=== PATIENT | female | born 1985 | race Caucasian/White ===

== ENCOUNTER 2023-01-18 21:23 | Emergency (ER) | payer BC, SELFPAY ==
[2023-01-18] VITALS (9 sets, daily range): BP systolic 146–164; BP diastolic 77–100; PULSE 77–82; RESP 16–18; TEMP 37.1; O2SAT 97–98; BMI 43.4
--- NOTE | 2023-01-18 22:32 | ECG_ITS ---
[facility] Test Date: 2023-01-18 Pat Name: Mariam Rodriguez Department: Room: - Gender: Female Surveillance Systems [employer]st: : 1985 Requested By: MARE EDEN Order Number: [id number] Reading MD: EDDIE DE LA VEGA Measurements Intervals [place] Rate: 78 P: 73 VA: 190 QRS: 76 QRSD: 92 T: 52 QT: 418 QTc: 452 Interpretive Statements 1100 Sinus rhythm 8304 Long QTc interval 9150 abnormal ECG No previous ECG available for comparison Electronically Signed On 01-19-2023 6:41:31 EDT by EDDIE DE LA VEGA
--- NOTE | 2023-01-18 22:32 | XR_ITS ---
[address] [address] Patient Name: JEOVANY GORDILLO MRN: [id number] date: 1985 Sex: F Assigned Patient Location: ER Current Patient Location: ER Accession/Order Number: [id number] Exam Date: 01/18/2023 23:08 Report Date: 01/18/2023 23:35 At the request of: COREY VARMA Procedure: XR chest 1V EXAMINATION: XR chest 1V HISTORY: Hypertension COMPARISON: Chest x-rays 07/14/2015 TECHNIQUE: Portable chest FINDINGS: The lung parenchyma is free of consolidation or infiltrate. No pneumothorax or pleural effusion. The cardiac, mediastinal and hilar contours are normal. The visualized osseous structures exhibit no gross abnormality. IMPRESSION: No acute cardiopulmonary abnormality. Electronically authenticated by: MILTON FATIMA Date: 01/18/2023 23:35
--- NOTE | 2023-01-18 22:33 | ED_ITS ---
HPI - Chest Pain General Chief Complaint: Chest Pain Stated Complaint: high blood pressure Time Seen by Provider: 01/18/23 22:32 Source: patient Mode of arrival: walk-in Limitations: no limitations History of Present Illness HPI narrative: patient states at home she developed pain of her ears, headache and pain extending down her back. Took her BP and it was over 200 on 3 separate occasions. Decided to come to the ER. No chest pain or dyspnea or nausea. States feeling better now that she is here Risk Factors Coronary artery disease risk factors: hypertension Related Data Home Medications Medication Instructions Recorded Confirmed carvedilol 25 mg tablet mg 01/18/23 cyclobenzaprine 10 mg tablet mg 01/18/23 empagliflozin 25 mg tablet mg 01/18/23 (Jardiance) furosemide 20 mg tablet mg 01/18/23 losartan 100 mg tablet mg 01/18/23 meloxicam 15 mg tablet mg 01/18/23 Allergies Allergy/AdvReac Type Severity Reaction Status Date / Time calcium carbonate [From Tums] Allergy Unknown Verified 01/18/23 22:02 Review of Systems ROS Status of ROS 10 or more systems reviewed and unremarkable except as noted in history and below Exam Constitutional Vital Signs - 24 hr 01/18/23 21:54 01/18/23 23:47 01/18/23 21:58 Temperature 98.7 F Pulse Rate Pulse Rate [Monitor] 82 Respiratory Rate 18 Blood Pressure 150/100 H Blood Pressure [Left Arm] 164/93 H Pulse Oximetry 97 97 Oxygen Delivery Method Room Air 01/18/23 21:59 01/18/23 21:59 01/18/23 21:59 Temperature Pulse Rate Pulse Rate [Monitor] Respiratory Rate Blood Pressure 164/93 H 164/93 H Blood Pressure [Left Arm] Pulse Oximetry 98 Oxygen Delivery Method 01/18/23 22:07 01/18/23 22:16 01/18/23 22:38 Temperature Pulse Rate 77 Pulse Rate [Monitor] Respiratory Rate Blood Pressure 161/77 H 146/99 H Blood Pressure [Left Arm] Pulse Oximetry Oxygen Delivery Method 01/18/23 22:39 01/18/23 23:41 01/19/23 00:42 Temperature Pulse Rate 77 Pulse Rate [Monitor] Respiratory Rate 16 Blood Pressure 160/81 H 150/100 H Blood Pressure [Left Arm] Pulse Oximetry Oxygen Delivery Method HENAR Common normals: normocephalic and head/scalp atraumatic Eye Common normals: EOMs intact bilaterally and conjunctivae normal Neck & C-Spine Common normals: full ROM Chest Common normals: inspection of chest normal Respiratory Common normals: normal respiratory effort, no use of accessory muscles and clear to auscultation bilaterally Cardio Common normals: no JVD, regular rhythm and S1 normal heart sound GI Common normals: Normal to inspection, nondistended, normoactive bowel sounds present and soft to palpation Extremity Common normals: normal to inspection, full ROM and no joint enlargement Neuro Common normals: oriented x3, CN's II-XII intact bilaterally and gait normal Psych Common normals: mental status grossly normal Course Vital Signs Vital signs: Vital Signs Temperature 98.7 F 01/18/23 21:54 Pulse Rate 82 01/18/23 21:54 Respiratory Rate 18 01/18/23 21:54 Blood Pressure 164/93 H 01/18/23 21:54 Pulse Oximetry 97 01/18/23 21:54 Oxygen Delivery Method Room Air 01/18/23 21:54 Temperature 98.7 F 01/18/23 21:54 Pulse Rate 77 01/18/23 22:39 Respiratory Rate 16 01/18/23 22:39 Blood Pressure 150/100 H 01/19/23 00:42 Pulse Oximetry 98 01/18/23 21:59 Oxygen Delivery Method Room Air 01/18/23 21:54 MDM - Chest Pain MDM Narrative Medical decision making narrative: patient presented with complaint of headache, ear pain and hypertension. States BP at home was over 200s on 3 occasions. Here her BP was acceptable. Labs inc luding troponin neg. EKG with sinus rhythm. QT sl. elevated. Patient discharged home to follow up with her family doctor. She will continue to monitor her BP at home. she remained asymptomatic while in the department Lab Data Labs: Lab Results 01/18/23 Range/Units 22:03 WBC 8.7 (4.0-11.0) 10^3/uL RBC 4.61 (4.20-5.40) 10^6/uL Hgb 13.5 (12.0-16.0) g/dL Hct 41.3 (36.0-48.0) % MCV 89.6 (81.0-99.0) fL MCH 29.3 (26.7-34.0) pg MCHC 32.7 (29.9-35.2) g/dL RDW 12.3 (11.0-15.0) % Plt Count 305 (150-450) 10^3/uL MPV 10.3 (9.5-13.5) fL Neut % (Auto) 62.3 (43.0-75.0) % Lymph % (Auto) 27.8 (20.5-60.0) % [place] % (Auto) 7.0 (1.7-12.0) % Eos % (Auto) 2.1 (0.9-7.0) % Baso % (Auto) 0.6 (0.2-2.0) % Neut # (Auto) 5.4 (1.4-6.5) 10^3/uL Lymph # (Auto) 2.4 (1.2-3.8) 10^3/uL [place] # (Auto) 0.6 (0.3-0.8) 10^3/uL Eos # (Auto) 0.2 (0.0-0.7) 10^3/uL Baso # (Auto) 0.1 (0.0-0.1) 10^3/uL Sodium 136 (136-145) mmol/L Potassium 3.3 L (3.5-5.1) mmol/L Chloride 101 (98-107) mmol/L Carbon Dioxide 27.9 (21.0-32.0) mmol/L Anion Gap 10.4 BUN 11.0 (7.0-18.0) mg/dL Creatinine 0.91 (0.55-1.02) mg/dL Est GFR ( Amer) >60 (>=60) Est GFR (Non-Af Amer) >60 (>=60) BUN/Creatinine Ratio 12.1 Glucose 118 H (74-106) mg/dL Calcium 8.5 (8.5-10.1) mg/dL Troponin I High Sens 5.0 (4.0-51.3) pg/mL Discharge Plan Discharge Chief Complaint: Chest Pain Clinical Impression: Hypertension Patient Disposition: Home, Self-Care Prescriptions / Home Meds: No Action cyclobenzaprine 10 mg tablet carvedilol 25 mg tablet meloxicam 15 mg tablet furosemide 20 mg tablet losartan 100 mg tablet Jardiance 25 mg tablet Instructions: Hypertension (ED) Stand Alone Forms: Portal Instructions Referrals: MARE EDEN [Primary Care Provider] - 1 week Follow Up Appointments: follow up with the family doctor for recheck of blood pressure next week
[2023-01-18 22:39] LABS: Basophils Absolute Auto 0.1 10^3/uL (0.0-0.1); Basophils Percent Auto 0.6 % (0.2-2.0); Eosinophils Absolute Auto 0.2 10^3/uL (0.0-0.7); Eosinophils Percent Auto 2.1 % (0.9-7.0); Hematocrit 41.3 % (36.0-48.0); Hemoglobin 13.5 g/dL (12.0-16.0); Immature Granulocytes Abs Auto 0.02 10^3/uL (0.00-0.03); Immature Granulocytes Pct Auto 0.2 % (0.0-0.5); Lymphocytes Absolute Auto 2.4 10^3/uL (1.2-3.8); Lymphocytes Percent Auto 27.8 % (20.5-60.0); Mean Corpuscular HGB Conc 32.7 g/dL (29.9-35.2); Mean Corpuscular Hemoglobin 29.3 pg (26.7-34.0); Mean Corpuscular Volume 89.6 fL (81.0-99.0); Mean Platelet Volume 10.3 fL (9.5-13.5); Monocytes Absolute Auto 0.6 10^3/uL (0.3-0.8); Neutrophils Absolute Auto 5.4 10^3/uL (1.4-6.5); Neutrophils Percent Auto 62.3 % (43.0-75.0); Platelet Count 305 10^3/uL (150-450); Red Blood Count 4.61 10^6/uL (4.20-5.40); Red Cell Distribution Width 12.3 % (11.0-15.0); White Blood Count 8.7 10^3/uL (4.0-11.0)
[2023-01-18 23:01] LABS: Anion Gap 10.4; BUN Creatinine Ratio 12.1; Calcium 8.5 mg/dL (8.5-10.1); Carbon Dioxide 27.9 mmol/L (21.0-32.0); Chloride 101 mmol/L (98-107); Estimated GFR (African America >60 (>=60); Estimated GFR (Non-African Ame >60 (>=60); Glucose 118 mg/dL (74-106); Potassium 3.3 mmol/L (3.5-5.1); Sodium 136 mmol/L (136-145)
[2023-01-19 00:42] VITALS: BP 150/100
== END 2023-01-19 01:44 | disposition home or self-care (01) ==
PROVIDERS: Emergency Provider Internal Medicine; PCP Family Medicine
DX: I10 Essential (primary) hypertension (principal); Z79.899 Other long term (current) drug therapy
CPT/HCPCS: 36415; 71045; 80048; 84484; 85025; 93005; 99285

== ENCOUNTER 2023-04-10 16:38 | Outpatient (OUT) | payer BC, SELFPAY ==
[2023-04-10 16:58] LABS: Basophils Absolute Auto 0.1 10^3/uL (0.0-0.1); Basophils Percent Auto 0.4 % (0.2-2.0); Eosinophils Absolute Auto 0.2 10^3/uL (0.0-0.7); Eosinophils Percent Auto 1.3 % (0.9-7.0); Hematocrit 41.4 % (36.0-48.0); Hemoglobin 13.5 g/dL (12.0-16.0); Immature Granulocytes Abs Auto 0.04 10^3/uL (0.00-0.03); Immature Granulocytes Pct Auto 0.4 % (0.0-0.5); Lymphocytes Absolute Auto 2.5 10^3/uL (1.2-3.8); Lymphocytes Percent Auto 21.8 % (20.5-60.0); Mean Corpuscular HGB Conc 32.6 g/dL (29.9-35.2); Mean Corpuscular Hemoglobin 29.5 pg (26.7-34.0); Mean Corpuscular Volume 90.4 fL (81.0-99.0); Mean Platelet Volume 10.3 fL (9.5-13.5); Monocytes Absolute Auto 0.6 10^3/uL (0.3-0.8); Monocytes Percent Auto 4.8 % (1.7-12.0); Neutrophils Absolute Auto 8.1 10^3/uL (1.4-6.5); Neutrophils Percent Auto 71.3 % (43.0-75.0); Platelet Count 272 10^3/uL (150-450); Red Blood Count 4.58 10^6/uL (4.20-5.40); Red Cell Distribution Width 12.7 % (11.0-15.0); White Blood Count 11.4 10^3/uL (4.0-11.0)
[2023-04-10 17:25] LABS: Estimated Average Glucose 117 mg/dL; Glycohemoglobin A1C 5.7 % (4.5-6.2)
[2023-04-10 17:38] LABS: Alanine Aminotransferase 36 U/L (14-59); Albumin Globulin Ratio 1.1; Alkaline Phosphatase 67 U/L (46-116); Anion Gap 11.2; Aspartate Amino Transferase 18 U/L (15-37); BUN Creatinine Ratio 9.7; Bilirubin Total 0.7 mg/dL (0.2-1.0); Calcium 8.6 mg/dL (8.5-10.1); Carbon Dioxide 27.3 mmol/L (21.0-32.0); Chloride 100 mmol/L (98-107); Chol HDL Ratio 5.4; Cholesterol 182 mg/dL (<=200); Estimated GFR (African America >60 (>=60); Estimated GFR (Non-African Ame >60 (>=60); Globulin 3.6 g/dL; Glucose 92 mg/dL (74-106); HDL Cholesterol 34 mg/dL (40-60); Potassium 3.5 mmol/L (3.5-5.1); Sodium 135 mmol/L (136-145); Thyroid Stimulating Hormone 1.743 uIU/mL (0.358-3.740); Total Protein 7.6 g/dL (6.4-8.2); Triglycerides 134 mg/dL (<=150); VLDL CHOLESTEROL 26.8 mg/dL
== END 2023-04-10 16:39 | disposition home or self-care (01) ==
PROVIDERS: PCP Family Medicine; Visit Provider Physician Assistant
DX: Z00.00 Encounter for general adult medical examination without abnormal findings (principal); R53.83 Other fatigue; I10 Essential (primary) hypertension; E11.39 Type 2 diabetes mellitus with other diabetic ophthalmic complication; E78.1 Pure hyperglyceridemia; E78.6 Lipoprotein deficiency; E88.81 Metabolic syndrome and other insulin resistance; E87.6 Hypokalemia; E78.2 Mixed hyperlipidemia; E04.1 Nontoxic single thyroid nodule; E04.2 Nontoxic multinodular goiter; E03.9 Hypothyroidism, unspecified
CPT/HCPCS: 36415; 80053; 80061; 82306; 82607; 82670; 83036; 84443; 85025

== ENCOUNTER 2025-05-26 16:15 | Outpatient (OUT) | payer BC, SELFPAY ==
[2025-05-28 08:08] LABS: Vitamin B12 705 pg/mL (232-1245)
[2025-05-28 09:09] LABS: C-Reactive Protein, Cardiac 3.73 mg/L (0.00-3.00)
[2025-05-30 14:08] LABS: Albumin 3.4 g/dL (2.9-4.4); Alpha-1-Globulin 0.3 g/dL (0.0-0.4); Alpha-2-Globulin 0.8 g/dL (0.4-1.0); Gamma Globulin 1.2 g/dL (0.4-1.8)
[2025-05-30 17:08] LABS: Free Kappa Lt Chains,S 34.8 mg/L (3.3-19.4); Free Lambda Lt Chains,S 27.9 mg/L (5.7-26.3); Kappa/Lambda Ratio,S 1.25 (0.26-1.65)
[2025-05-31 02:07] LABS: Vitamin B6, Plasma 18.8 ug/L (3.4-65.2)
[2025-05-31 14:09] LABS: West Nile Virus, IgG Negative (Negative); West Nile Virus, IgM Negative (Negative)
== END 2025-05-26 16:16 | disposition home or self-care (01) ==
LOC: LAB 16:20
PROVIDERS: PCP Family Medicine; Visit Provider Nurse Practitioner Adult Health
DX: G62.9 Polyneuropathy, unspecified (principal); I67.2 Cerebral atherosclerosis; E53.8 Deficiency of other specified B group vitamins; M31.6 Other giant cell arteritis; M79.10 Myalgia, unspecified site; E78.49 Other hyperlipidemia; E53.1 Pyridoxine deficiency; I70.91 Generalized atherosclerosis
CPT/HCPCS: 36415; 82607; 82746; 82784; 83090; 83521; 83921; 84155; 84165; 84207; 85652; 86038; 86140; 86334; 86431; 86618; 86788; 86789